=== PATIENT | male | born 1970 | race African-American/Black ===

== ENCOUNTER 2022-01-01 19:51 | Inpatient (IN) ==
[2022-01-01] MEDS ORDERED: PANTOprazole 40 MG in SYRINGE 0 ML IV ONE (20:06)
[2022-01-01] MEDS ORDERED: FAMOTIDINE 20MG IV PUSH 20 MG/5 ML SYR IV STA (20:06)
--- NOTE | 2022-01-01 20:16 | Emergency Department Note ---
Impression & Plan Anemia, FLANNERY (dyspnea on exertion), Acute GI bleeding ED Provider Note NAME: REJI WALKER AGE: 51 SEX: M : 1970 ARRIVES VIA: Walk-In INFORMANT: Patient, ED PROVIDER(S): Merlin Benton DO CHIEF COMPLAINT: Shortness of breath HPI: The patient is a 51-year-old male who presented to the emergency department for an evaluation of dyspnea on exertion. The patient states that he was seen at the [facility] and had laboratory studies obtained. He is unsure what laboratory studies were abnormal but he was sent to the emergency department for further evaluation. He states he has had no chest pain. He denies having any abdominal pain. He denies having any black or bloody bowel movements. He denies having any swelling in his legs. He states he has been noticing shortness of breath especially with exertion. He states he did not have a rectal exam prior to being sent to the emergency department. The patient states he has had no fever or cough. He states he does have a history of peptic ulcer disease in the past. He states he has been compliant with his usual medication regimen. ROS: See above HPI for pertinent positives & negatives. A total of 10 systems reviewed and were otherwise negative. PAST MEDICAL HISTORY: See Below PAST SURGICAL HISTORY: See Below FAMILY HISTORY: See Below SOCIAL HISTORY: See Below HOME MEDICATIONS: See Below ALLERGIES: See Below VITALS: See Below PHYSICAL EXAMINATION: GENERAL: Patient is awake alert in no acute distress patient is resting com fortably and showing no signs of anxiety EYES: The conjunctivae are clear. The pupils are round and reactive. EARS, NOSE, MOUTH AND THROAT: The nose is without any evidence of any deformity. Mucous membranes are moist. Tongue is midline. NECK: The neck is nontender and supple. RESPIRATORY: Normal respiratory effort is noted there is no evidence of wheezing rhonchi or rales CARDIOVASCULAR: Regular rate and rhythm noted there no murmurs rubs or gallops normal S1 normal S2. GASTROINTESTINAL: The abdomen is mildly distended but soft. There is no tenderness guarding rigidity. Rectal exam revealed brown stool which was heme positive. MUSCULOSKELETAL/EXTREMITIES: There is no evidence of gross deformity full range of motion is noted in the hips and shoulders. SKIN: There is no obvious evidence of any rash. There are no petechiae, pallor or cyanosis noted. NEUROLOGIC: Patient is awake alert and oriented x3. MEDICAL DECISION MAKING: The patient is a 51-year-old male who presented to emergency department for an evaluation of shortness of breath. The patient was experiencing shortness of breath with exertion. He went to the [facility] and had laboratory studies drawn. He was sent to the emergency department this evening because of abnormal labs. The patient himself is not aware of what laboratory studies were abnormal. He denies having any nausea or vomiting. He did have heme positive stool which was brown. The patient has a history of GERD. At this time the patient has no definite source for the anemia although it could be related to the heme positive stool. I discussed the patient's laboratory and radiographic studies with him. He was ordered a blood transfusion. I consented the patient for blood in the emergency department. Triage Nursing notes reviewed. Prior medical records reviewed Vital Signs: reviewed and remarkable for no significant abnormalities Differential diagnosis: Infection, dehydration, metabolic abnormality, hypo/hyperglycemia, electrolyte disturbance, anemia, hypoxia, cardiac sources, intracerebral event, toxicologic, neurologic, as well as other pathologies. ER treatment provided: See below Diagnostics interpreted by me: ECG: EKG was obtained in the emergency department. My interpretation is normal sinus rhythm at 75 bpm. There is no ectopy. There is no acute ST segment abnormalities noted. No previous tracing was available. Cardiac Monitoring: An order was placed for continuous cardiac monitoring. The monitor shows a rate of 87 bpm with sinus rhythm. Laboratory studies: As stated above and show below. Imaging studies: See below Consultation(s): Discussed this case with Dr. Duke. ED COURSE: Procedures: none PDMP:reviewed and no issues Critical Care: I have personally spent greater than 40 minutes of critical care time in the direct management of this patient. This includes bedside care, interpretation of diagnostic studies, and testing, discussion with consultants, patient, and family members, and other required patient management activities. This 40 minutes is in excess of all separately billable procedures. Past Med/Surg History Medical History BPH (benign prostatic hyperplasia) GERD (gastroesophageal reflux disease) Hyperlipidemia Hypertension Insulin dependent diabetes mellitus Sleep apnea Spinal stenosis Social History Smoking Status: Current every day smoker Tobacco Type: E-cigarettes / Vaping Hx Substance Use: Yes Prescribed Medications: Marijuana Non-Prescribed Medications: Crack / Cocaine Preferred Language: Angolan Feels Safe at Home: Yes Allergies Allergies Allergy/AdvReac Type Severity Reaction Status Date / Time lisinopril Allergy Unknown ON MED LIST Verified 01/01/22 20:36 NSAIDS (Non-Steroidal Allergy Unknown ON MED LIST Verified 01/01/22 20:36 Anti-Inflamma Results & Data (ED) Vital Signs Vital Signs - 24 hr 01/01/22 19:52 Temperature 36.5 C Temperature Source Temporal Artery Scan Pulse Rate 87 Respiratory Rate 20 Respiratory Effort / Characteristics Non-Labored Spontaneous Respiratory Depth Normal Blood Pressure 130/73 Blood Pressure Mean 92 Pulse Oximetry 98 Oxygen Delivery Method Room Air Sepsis New/Unexplained Change in Mental Status N/A Sepsis Action Taken by Nursing No Action Required Home Medications Current Medication List: was personally reviewed by me Laboratory Data Attestation: I reviewed the patient's lab results. Result diagrams: 01/01/22 20:10 01/01/22 20:10 Lab Results 01/01/22 01/01/22 01/01/22 Range/Units 20:10 20:10 20:10 WBC 10.29 (4.8-10.8) K/uL RBC 4.41 L (4.7-6.1) M/uL Hgb 6.3 L* (14.0-18.0) g/dL Hct 24.6 L (42-52) % MCV 55.8 L (80-100) fL MCH 14.3 L (25-34) pg MCHC 25.6 L (32-36) g/dL RDW Std Deviation 47.4 H (36.4-46.3) fL RDW Coeff of Nikki 23.3 H (11.5-14.5) % Plt Count 374 (130-400) K/uL MPV 8.0 (7.4-10.4) fL Immature Gran % (Auto) 0.5 % Neut % (Auto) 52.2 % Lymph % (Auto) 33.2 % Sanders % (Auto) 10.7 % Eos % (Auto) 2.4 % Baso % (Auto) 1.0 % Neut # (Auto) 5.37 (1.4-6.5) K/uL Lymph # (Auto) 3.42 H (1.2-3.4) K/uL Sanders # (Auto) 1.10 H (0.11-0.59) K/uL Eos # (Auto) 0.25 (0-0.5) K/uL Baso # (Auto) 0.10 (0-0.2) K/uL Immature Gran # (Auto) 0.05 H (0.00-0.02) K/uL Absolute Nucleated RBC 0.14 H (0-0) K/uL Nucleated RBC % (auto) 1.4 % Polychromasia 1+ Hypochromasia Present Microcytosis Present Tear Drop Cells 1+ Ovalocytes 1+ PT 11.0 (9.0-12.0) Seconds INR 1.0 (0.9-1.1) APTT 21.8 (21.0-31.0) Seconds PTT Ratio 0.8 Sodium (136-145) mmol/L Potassium (3.5-5.1) mmol/L Chloride (98-107) mmol/L Carbon Dioxide (21-32) mmol/L Anion Gap (3-11) BUN (6-23) mg/dl Creatinine (0.6-1.4) mg/dl Est Cr Clr Drug Dosing Est GFR ( Amer) ml/min Est GFR (Non-Af Amer) ml/min BUN/Creatinine Ratio (10-20) Glucose (70-99(Fasting)) mg/dl Calcium (8.5-10.1) mg/dl Total Bilirubin (0.2-1.0) mg/dl AST (13-39) U/L ALT (7-52) U/L Alkaline Phosphatase (34-104) U/L Total Protein (6.0-8.3) gm/dl Albumin (3.4-5.0) gm/dl Globulin (2.5-4.0) gm/dl Albumin/Globulin Ratio (0.9-2) Lipase (11-82) U/L Crossmatch See Detail 01/01/22 Range/Units 20:10 WBC (4.8-10.8) K/uL RBC (4.7-6.1) M/uL Hgb (14.0-18.0) g/dL Hct (42-52) % MCV (80-100) fL MCH (25-34) pg MCHC (32-36) g/dL RDW Std Deviation (36.4-46.3) fL RDW Coeff of Nikki (11.5-14.5) % Plt Count (130-400) K/uL MPV (7.4-10.4) fL Immature Gran % (Auto) % Neut % (Auto) % Lymph % (Auto) % Sanders % (Auto) % Eos % (Auto) % Baso % (Auto) % Neut # (Auto) (1.4-6.5) K/uL Lymph # (Auto) (1.2-3.4) K/uL Sanders # (Auto) (0.11-0.59) K/uL Eos # (Auto) (0-0.5) K/uL Baso # (Auto) (0-0.2) K/uL Immature Gran # (Auto) (0.00-0.02) K/uL Absolute Nucleated RBC (0-0) K/uL Nucleated RBC % (auto) % Polychromasia Hypochromasia Microcytosis Tear Drop Cells Ovalocytes PT (9.0-12.0) Seconds INR (0.9-1.1) APTT (21.0-31.0) Seconds PTT Ratio Sodium 140 (136-145) mmol/L Potassium 3.8 (3.5-5.1) mmol/L Chloride 109 H (98-107) mmol/L Carbon Dioxide 24 (21-32) mmol/L Anion Gap 7 (3-11) BUN 13 (6-23) mg/dl Creatinine 1.00 (0.6-1.4) mg/dl Est Cr Clr Drug Dosing Not Reportable Est GFR ( Amer) 99.8 ml/min Est GFR (Non-Af Amer) 86.2 ml/min BUN/Creatinine Ratio 13.0 (10-20) Glucose 63 L (70-99(Fasting)) mg/dl Calcium 8.4 L (8.5-10.1) mg/dl Total Bilirubin 0.3 (0.2-1.0) mg/dl AST 19 (13-39) U/L ALT 18 (7-52) U/L Alkaline Phosphatase 62 (34-104) U/L Total Protein 6.6 (6.0-8.3) gm/dl Albumin 3.8 (3.4-5.0) gm/dl Globulin 2.8 (2.5-4.0) gm/dl Albumin/Globulin Ratio 1.4 (0.9-2) Lipase 23 (11-82) U/L Crossmatch Discharge Plan Visit Data Chief Complaint: Abnormal Labs/Diagnostic Testing Stated Complaint: ABNORMAL LABS ED Provider: Merlin Benton Discharge Problem: Anemia, FLANNERY (dyspnea on exertion), Acute GI bleeding Patient Disposition: Being Evaluated by Hospitalist Forms Stand Alone Forms: [facility] Referrals Referrals: Michael LOPEZ [Primary Care Provider] -
[2022-01-01 20:22] LABS: Hematocrit (blood only) 24.6 % (42-52); Hemoglobin 6.3 g/dL (14.0-18.0); Mean Corpuscular Hemoglobin 14.3 pg (25-34); Mean Corpuscular Hgb Conc 25.6 g/dL (32-36); Mean Corpuscular Volume 55.8 fL (80-100); Nucleated RBC # (auto) 0.14 K/uL (0-0); Nucleated RBC % (auto) 1.4 %; Platelet Count 374 K/uL (130-400); RDW Coefficient of Variation 23.3 % (11.5-14.5); RDW Standard Deviation 47.4 fL (36.4-46.3); Red Blood Count 4.41 M/uL (4.7-6.1); White Blood Count 10.29 K/uL (4.8-10.8)
[2022-01-01] MEDS ORDERED: SODIUM CHLORIDE 0.9% 250 ML IV PRN (20:29)
[2022-01-01 20:34] LABS: Partial Thromboplastin Ratio 0.8; Partial Thromboplastin Time 21.8 Seconds (21.0-31.0)
[2022-01-01 20:37] LABS: Eosinophils # (auto) 0.25 K/uL (0-0.5); Eosinophils % (auto) 2.4 %; Hypochromasia Present; Immature Granulocytes # (auto) 0.05 K/uL (0.00-0.02); Immature Granulocytes % (auto) 0.5 %; Lymphocytes # (auto) 3.42 K/uL (1.2-3.4); Lymphocytes % (auto) 33.2 %; Microcytosis Present; Monocytes % (auto) 10.7 %; Neutrophils # (auto) 5.37 K/uL (1.4-6.5); Neutrophils % (auto) 52.2 %; Ovalocytes 1+; Polychromasia 1+; Tear Drop Cells 1+
[2022-01-01 20:38] LABS: Alanine Aminotransferase 18 U/L (7-52); Albumin Globulin Ratio 1.4 (0.9-2); Albumin Level 3.8 gm/dl (3.4-5.0); Alkaline Phosphatase 62 U/L (34-104); Anion Gap 7 (3-11); Aspartate Aminotransferase 19 U/L (13-39); Bilirubin,Total 0.3 mg/dl (0.2-1.0); Blood Urea Nitrogen 13 mg/dl (6-23); Calcium 8.4 mg/dl (8.5-10.1); Carbon Dioxide 24 mmol/L (21-32); Chloride 109 mmol/L (98-107); Est GFR (African American) 99.8 ml/min; Est GFR (Non-African American) 86.2 ml/min; Globulin 2.8 gm/dl (2.5-4.0); Glucose 63 mg/dl (70-99(Fasting)); Lipase 23 U/L (11-82); Potassium 3.8 mmol/L (3.5-5.1); Sodium 140 mmol/L (136-145); Total Protein 6.6 gm/dl (6.0-8.3)
[2022-01-01 20:40] LABS: Troponin I < 0.03 ng/ml (0-0.04)
[2022-01-01] MEDS ORDERED: CALCIUM GLUCONATE 1,000 MG/60 ML BAG IV STA (20:43)
[2022-01-01] MEDS: DEXTROSE 50% 50 ML SYRINGE IV ONE ×2 (21:10→21:19)
--- NOTE | 2022-01-01 21:22 | History & Physical Report ---
Date of Service January 01, 2022 Assessment & Plan (1) Anemia: Plan: New onset Occult GI bleed hx PUD as per records Patient asymptomatic.. HTN, stable COPD, pulmonary symptoms at baseline DM 2 insulin requiring, patient currently hyperglycemic ongoing nicotine abuse Medical telemetry Transfuse PRBC to maintain hemoglobin greater than 7 Hold home aspirin Anemia work-up Continue home PPI GI consult Re: New onset anemia, occult GI bleed Hold basal insulin for now until recheck done given hypoglycemia, ISS BG goal 1 10-1 40, carb count coverage, check hemoglobin A1c Nicotine patch as needed DVT prophylaxis. SCDs Re: GI bleed Full code Text document was generated using [employer] voice recognition software. It may contain grammatical or spelling errors. Kindly contact undersigned for clarification of any documentation item in question. History of Present Illness Chief Complaint: Abnormal blood work Primary Care Provider: JESSICA Rodriguez History obtained from patient and records. Medical history significant for HTN, COPD, STONEY on CPAP, DM 2 insulin requiring, PUD, mood disorder, ongoing nicotine abuse. Patient is an inmate at [facility] who went for routine blood work at the [facility] today. Patient hemoglobin noted to be low. Patient does not recall any problems with last blood work 6 months ago. Patient denies chest pain, weakness. Usual shortness of breath, cough symptoms which patient attributes to his COPD. Denies abdominal pain, black/bloody stools. Compliant with home antacids. Patient takes baby aspirin for heart protection. No prior history of CAD/CVA as per patient. Involuntary weight loss of about 15 pounds in the last 3 months as per patient despite good appetite. Last colonoscopy was about 5 years ago, unrecalled findings. Patient sent to the ER for evaluation. Brown stool faintly hemoccult positive as per ER provider. IV PPI and Famotidine administered at the ER. Medical History as above Surgical History : Achilles tendon surgery, neck surgery Family History : DM, lung cancer Personal/Social history : E-cigarette use, occasional EtOH intake, businessman prior to incarceration Allergies Allergy/AdvReac Type Severity Reaction Status Date / Time lisinopril Allergy Unknown ON MED LIST Verified 01/01/22 20:36 NSAIDS (Non-Steroidal Allergy Unknown ON MED LIST Verified 01/01/22 20:36 Anti-Inflamma Home Medications Medication Instructions Recorded Confirmed Type insulin glargine 100 unit/mL 40 unit SUBCUT BID 01/01/22 01/01/22 History subcutaneous solution insulin regular human 100 unit/mL 1 sliding scale dose SUBCUT BID 01/01/22 01/01/22 History injection solution (Novolin R Regular U-100 Insulin) insulin regular human 100 unit/mL 20 unit SUBCUT BID 01/01/22 01/01/22 History injection solution (Novolin R Regular U-100 Insulin) mirtazapine 45 mg tablet 45 mg PO HS 01/01/22 01/01/22 History oxybutynin chloride 5 mg tablet 5 mg PO TID 01/01/22 01/01/22 History prazosin 2 mg capsule 2 mg PO HS 01/01/22 01/01/22 History Past Med/Surg History Medical History BPH (benign prostatic hyperplasia) GERD (gastroesophageal reflux disease) Hyperlipidemia Hypertension Insulin dependent diabetes mellitus Sleep apnea Spinal stenosis Social History Smoking Status: Current every day smoker Tobacco Type: E-cigarettes / Vaping Second Hand Exposure: No; Do You Dip or Chew Tobacco: No; Tobacco Cessation Education Requested by Patient: No Hx Alcohol Use: No Hx Substance Use: No Preferred Language: Spanish [place] Diver Net Required: No Beliefs That Will Affect Care: Oriental Orthodox Oriental Orthodox Beliefs: Moravian- No pork products Current Living Situation: Other Current Living Situation Comment: Inmate Other Information That Helps Us Care for You: No Feels Safe at Home: Yes Safety Concerns: Feels Safe At This Time Assistive Devices: CPAP and Glasses Review of Systems Review of Systems: As per HPI, all 10 systems reviewed, all other ROS negative Physical Exam Physical Exam: GENERAL: Comfortable, no respiratory distress SKIN: Pallor, warm HEENT: Alopecia, pale palpebral conjunctivae, no ptosis, dry buccal mucosa NECK : Supple, no tenderness CHEST : Decreased breath sounds, no tenderness HEART : RRR, no obvious murmurs ABDOMEN: Some distention, nontender EXTREMITIES : No LE swelling/tenderness, no other conspicuous deformities noted NEUROLOGIC : Coherent, no facial asymmetry, no other gross focality Results & Data Results & Data ([facility]) Vital Signs (Past 12 Hours) Vital Signs Temp Pulse Pulse Resp BP BP Pulse Ox 01/01/22 21:16 36.8 C 84 18 132/71 99 03/12/22 19:59 99 01/01/22 19:52 36.5 C 87 20 130/73 98 Laboratory Results Laboratory Results WBC 10.29 K/uL (4.8-10.8) 01/01/22 20:10 RBC 4.41 M/uL (4.7-6.1) L 01/01/22 20:10 Hgb 6.3 g/dL (14.0-18.0) L* 01/01/22 20:10 Hct 24.6 % (42-52) L 01/01/22 20:10 MCV 55.8 fL (80-100) L 01/01/22 20:10 MCH 14.3 pg (25-34) L 01/01/22 20:10 MCHC 25.6 g/dL (32-36) L 01/01/22 20:10 RDW Std Deviation 47.4 fL (36.4-46.3) H 01/01/22 20:10 RDW Coeff of Nikki 23.3 % (11.5-14.5) H 01/01/22 20:10 Plt Count 374 K/uL (130-400) 01/01/22 20:10 MPV 8.0 fL (7.4-10.4) 01/01/22 20:10 Immature Gran % (Auto) 0.5 % 01/01/22 20:10 Neut % (Auto) 52.2 % 01/01/22 20:10 Lymph % (Auto) 33.2 % 01/01/22 20:10 Dakota % (Auto) 10.7 % 01/01/22 20:10 Eos % (Auto) 2.4 % 01/01/22 20:10 Baso % (Auto) 1.0 % 01/01/22 20:10 Neut # (Auto) 5.37 K/uL (1.4-6.5) 01/01/22 20:10 Lymph # (Auto) 3.42 K/uL (1.2-3.4) H 01/01/22 20:10 Dakota # (Auto) 1.10 K/uL (0.11-0.59) H 01/01/22 20:10 Eos # (Auto) 0.25 K/uL (0-0.5) 01/01/22 20:10 Baso # (Auto) 0.10 K/uL (0-0.2) 01/01/22 20:10 Immature Gran # (Auto) 0.05 K/uL (0.00-0.02) H 01/01/22 20:10 Absolute Nucleated RBC 0.14 K/uL (0-0) H 01/01/22 20:10 Nucleated RBC % (auto) 1.4 % 01/01/22 20:10 Polychromasia 1+ 01/01/22 20:10 Hypochromasia Present 01/01/22 20:10 Microcytosis Present 01/01/22 20:10 Tear Drop Cells 1+ 01/01/22 20:10 Ovalocytes 1+ 01/01/22 20:10 PT 11.0 Seconds (9.0-12.0) 01/01/22 20:10 INR 1.0 (0.9-1.1) 01/01/22 20:10 APTT 21.8 Seconds (21.0-31.0) 01/01/22 20:10 PTT Ratio 0.8 01/01/22 20:10 Sodium 140 mmol/L (136-145) 01/01/22 20:10 Potassium 3.8 mmol/L (3.5-5.1) 01/01/22 20:10 Chloride 109 mmol/L (98-107) H 01/01/22 20:10 Carbon Dioxide 24 mmol/L (21-32) 01/01/22 20:10 Anion Gap 7 (3-11) 01/01/22 20:10 BUN 13 mg/dl (6-23) 01/01/22 20:10 Creatinine 1.00 mg/dl (0.6-1.4) 01/01/22 20:10 Est Cr Clr Drug Dosing Not Reportable 01/01/22 20:10 Est GFR ( Amer) 99.8 ml/min 01/01/22 20:10 Est GFR (Non-Af Amer) 86.2 ml/min 01/01/22 20:10 BUN/Creatinine Ratio 13.0 (10-20) 01/01/22 20:10 Glucose 63 mg/dl (70-99(Fasting)) L 01/01/22 20:10 Calcium 8.4 mg/dl (8.5-10.1) L 01/01/22 20:10 Magnesium 1.5 mg/dl (1.7-2.4) L 01/01/22 20:10 Total Bilirubin 0.3 mg/dl (0.2-1.0) 01/01/22 20:10 AST 19 U/L (13-39) 01/01/22 20:10 ALT 18 U/L (7-52) 01/01/22 20:10 Alkaline Phosphatase 62 U/L (34-104) 01/01/22 20:10 Troponin I < 0.03 ng/ml (0-0.04) 01/01/22 20:10 Total Protein 6.6 gm/dl (6.0-8.3) 01/01/22 20:10 Albumin 3.8 gm/dl (3.4-5.0) 01/01/22 20:10 Globulin 2.8 gm/dl (2.5-4.0) 01/01/22 20:10 Albumin/Globulin Ratio 1.4 (0.9-2) 01/01/22 20:10 Lipase 23 U/L (11-82) 01/01/22 20:10 Blood Type B Positive 01/01/22 20:10 Blood Type Recheck B Positive 01/01/22 20:36 Antibody Screen NEGATIVE 01/01/22 20:10 Crossmatch See Detail 01/01/22 20:10 Diagnostic Findings Chest x-ray as per my interpretation cardiomegaly, elevated right hemidiaphragm EKG as per my interpretation : Rate 75, NSR, normal axis, no ischemia (1) Anemia Anemia type: unspecified type Qualified Code(s): D64.9 - Anemia, unspecified
[2022-01-01] MEDS ORDERED: ACETAMINOPHEN 325 MG TAB PO PRN (22:55)
[2022-01-01] MEDS ORDERED: DEXTROSE 50% 50 ML SYRINGE IV PRN (22:55)
[2022-01-01] MEDS ORDERED: CARBOHYDRATES FOR HYPOGLYCEMIA PO PRN (22:55)
[2022-01-01] MEDS ORDERED: GLUCOSE 10 TABS/TUBE PO PRN (22:55)
[2022-01-01] MEDS ORDERED: GLUCAGON FOR INJ 1 MG VIAL SQ PRN (22:55)
[2022-01-01] MEDS ORDERED: PROMETHAZINE HCL 12.5 MG in SODIUM CHLORIDE 0.9% 50 ML IV PRN (22:55)
[2022-01-01] MEDS ORDERED: GLUCOSE 40% GEL 15 GM TUBE PO PRN (22:55)
[2022-01-01] MEDS: PRAZOSIN HCL 1 MG CAP PO SCH (23:29)
[2022-01-01] MEDS: MAGNESIUM SULFATE / D5W 1 GM/100 ML BAG IV SCH (23:36)
[2022-01-01] MEDS: INSULIN ASPART PER UNIT SC SCH (23:36)
[2022-01-02] MEDS: MAGNESIUM SULFATE / D5W 1 GM/100 ML BAG IV SCH (01:59)
[2022-01-02] MEDS ORDERED: INSULIN GLARGINE SOLOSTAR 100 UNITS/ML 3 ML PEN SC STA (03:24)
[2022-01-02 07:18] LABS: Hematocrit (blood only) 27.1 % (42-52); Hemoglobin 7.3 g/dL (14.0-18.0); Mean Corpuscular Hemoglobin 15.7 pg (25-34); Mean Corpuscular Hgb Conc 26.9 g/dL (32-36); Mean Corpuscular Volume 58.3 fL (80-100); Nucleated RBC # (auto) 0.11 K/uL (0-0); Nucleated RBC % (auto) 0.9 %; Platelet Count 346 K/uL (130-400); RDW Coefficient of Variation 26.4 % (11.5-14.5); RDW Standard Deviation 55.7 fL (36.4-46.3); Red Blood Count 4.65 M/uL (4.7-6.1); White Blood Count 11.98 K/uL (4.8-10.8)
[2022-01-02 07:52] LABS: Calcium 8.3 mg/dl (8.5-10.1); Creatinine Clr Calc Pharmacy 86.4 ml/min; Est GFR (African American) 99.8 ml/min; Est GFR (Non-African American) 86.2 ml/min; Magnesium 2.2 mg/dl (1.7-2.4)
[2022-01-02 07:58] LABS: Anisocytosis Present; Basophils # (auto) 0.08 K/uL (0-0.2); Basophils % (auto) 0.7 %; Eosinophils # (auto) 0.19 K/uL (0-0.5); Eosinophils % (auto) 1.6 %; Hypochromasia Present; Immature Granulocytes # (auto) 0.05 K/uL (0.00-0.02); Immature Granulocytes % (auto) 0.4 %; Lymphocytes # (auto) 3.11 K/uL (1.2-3.4); Microcytosis Present; Monocytes # (auto) 0.94 K/uL (0.11-0.59); Monocytes % (auto) 7.8 %; Neutrophils # (auto) 7.61 K/uL (1.4-6.5); Neutrophils % (auto) 63.5 %; Poikilocytosis Present; Reticulocyte % 1.4 % (0.5-2.0); Reticulocytes # 0.07 10^6/uL (0.02-0.10)
[2022-01-02 08:06] LABS: Folate (Folic Acid) 13.25 ng/ml (>5.38)
[2022-01-02 08:08] LABS: Ferritin 1.4 ng/ml (8-388)
[2022-01-02] MEDS: INSULIN ASPART PER UNIT SC SCH ×4 (08:47→20:27)
[2022-01-02] MEDS: OXYBUTYNIN CHLORIDE 5 MG TAB PO SCH ×3 (08:49→20:25)
[2022-01-02] MEDS ORDERED: PANTOprazole 40 MG TAB PO SCH (09:00)
[2022-01-02] MEDS ORDERED: INSULIN GLARGINE SOLOSTAR 100 UNITS/ML 3 ML PEN SC SCH (09:00)
--- NOTE | 2022-01-02 09:22 | XRay Report ---
XR chest 1V portable HISTORY: Atypical Chest Pain COMPARISON: None. FINDINGS: The cardiac silhouette is mildly enlarged. No focal lung consolidations to suggest pneumoni a. No evidence for pulmonary edema. Hazy appearance of the right medial lung base may represent promi nent mediastinal fat. Cervical spinal fusion hardware is noted. No pleural effusions. No pneumothorax . IMPRESSION: Mild cardiomegaly. Otherwise, no acute process within the chest. ACT 112: Negative or not required by law. Electronically signed by: Bud Hobbs M.D. 01/02/2022 9:20 AM
--- NOTE | 2022-01-02 09:25 | Electrocardiogram Report ---
Test Reason : Blood Pressure : / mmHG Vent. Rate : 075 BPM Atrial Rate : 075 BPM P-R Int : 140 ms QRS Dur : 090 ms QT Int : 374 ms P-R-T Axes : 047 034 069 degrees QTc Int : 417 ms Normal sinus rhythm Normal ECG No previous ECGs available Confirmed by Micah Leiva ([id number]) on 01/02/2022 9:25:10 AM Referred By: Michael LOPEZ Confirmed By:Micah Leiva
[2022-01-02] MEDS: CYANOCOBALAMIN (B-12) 100 MCG TABLET PO SCH (11:08)
--- NOTE | 2022-01-02 13:08 | Hospitalist Progress Note ---
Date of Service January 02, 2022 Assessment & Plan (1) Anemia: Plan: 51-year old man with PMH of PUD, HTN, COPD, STONEY on CPAP, DM 2 insulin requiring, mood disorder and ongoing nicotine abuse presented to our ED 01/01 due to abnormal blood work by primary care provider--low hemoglobin. Patient denies any abdominal pain or black tarry/bloody stools. Is being managed for the following: #. New onset anemia #. History of PUD #. GI bleed, likely upper GI Patient presented to our ED due to low hemoglobin on recommendation from primary care Patient denies any abdominal pain or black tarry/bloody stool Patient does report involuntary weight loss of about 15 pounds in the last 3 months as per patient despite good appetite Last colonoscopy was 5 years ago, does not recall findings. Ferritin level 1.4, iron level 24, low normal vitamin B12 level --> iron supplementation, and 30-day vitamin B12 supplementation. Admitting hemoglobin of 6.3/admitting FOBT positive, status post 1 unit transfusion. Hemoglobin 7.3, continue to monitor every 8 hours and as appropriate. Transfuse for hemoglobin less than 7. Discussed with GI, n.p.o. after midnight for likely EGD tomorrow. c/w PPI, HnH monitoring. Continue to hold home aspirin. #. Other chronic medical conditions: HTN, COPD, DM 2 insulin requiring, ongoing nicotine abuse Nicotine patch as needed, resume/continue with home medications as and when required. On insulin sliding scale. DVT prophylaxis. SCDs Re: GI bleed Full code Admission and Anticipated Discharge Date Admission Date: January 01, 2022 Subjective Patient seen and examined at bedside as a follow-up of new onset anemia and occult GI bleed on the background of PUD as per records. Patient lying in bed, on room air, NAD, no new acute events overnight, no new bowel movements while in hospital, patient not eating much. Patient denies any belly pain or acute changes with bladder habits. Patient denies any fever/headache/chills/chest pain/palpitation/sore throat/cough/other review of symptoms. Physical Exam 2 Physical Exam: GENERAL: Alert and oriented x3. NAD, on RA. HEENT: No pallor, no icterus. Pupils equal, round and reactive to light. Oral mucosa moist. NECK: No JVD, no neck masses. HEART: S1 and S2 heard. Regular rate and rhythm. No murmur, no gallop. RESPIRATORY SYSTEM: Normal AP diameter. No accessory muscle use. No wheezing, no crackles. ABDOMEN: Soft, bowel sounds present, nontender, no distention. CENTRAL NERVOUS SYSTEM: No facial droop. Speech is clear. Obeys simple commands. Moves extremities. EXTREMITIES: No edema, no erythema seen. Results & Data Results & Data ([facility]) Vital Signs (Past 12 Hours) Vital Signs Temp Pulse Pulse Resp BP BP BP 01/02/22 12:06 36.6 C 72 20 143/82 H 01/02/22 07:33 73 01/02/22 06:42 36.8 C 69 18 127/77 01/02/22 01:55 36.5 C 81 18 135/74 01/02/22 00:32 36.5 C 81 18 147/75 H 01/01/22 23:56 36.9 C 82 16 150/82 H Pulse Ox 01/02/22 12:06 99 01/02/22 07:33 01/02/22 06:42 96 01/02/22 01:55 97 01/02/22 00:32 97 01/01/22 23:56 99 (1) Anemia Anemia type: unspecified type Qualified Code(s): D64.9 - Anemia, unspecified
--- NOTE | 2022-01-02 13:13 | Gastrointestinal Consultation ---
Date of Consultation January 02, 2022 Supervising Physician Co-Signing Physician Notes Check iron studies Transfuse to at least a hgb of 7 Npo after midnitie for egd tomorrow pending endo schedules. History of Present Illness Reason for Consultation: Anemia Requesting Physician: Luther Downey Attending Physician: Gloria Stauffer MD History of Present Illness 51 yo male diabetic, htn, advised to come into [facility] from [facility] after routine labs showed his hgb to be low. Denies any complaints other than fatigue. No overt hematemesis, hematochezia. No knonw family history. Reported with pudz in the past per chart review- no records or prior egd reports to review. He is eating lunch when seeing him in no acute distress. 2 guards present in the room. Allergies Allergy/AdvReac Type Severity Reaction Status Date / Time lisinopril Allergy Unknown ON MED LIST Verified 01/01/22 20:36 NSAIDS (Non-Steroidal Allergy Unknown ON MED LIST Verified 01/01/22 20:36 Anti-Inflamma Home Medications Medication Instructions Recorded Confirmed Type insulin glargine 100 unit/mL 40 unit SUBCUT BID 01/01/22 01/01/22 History subcutaneous solution insulin regular human 100 unit/mL 1 sliding scale dose SUBCUT BID 01/01/22 01/01/22 History injection solution (Novolin R Regular U-100 Insulin) insulin regular human 100 unit/mL 20 unit SUBCUT BID 01/01/22 01/01/22 History injection solution (Novolin R Regular U-100 Insulin) mirtazapine 45 mg tablet 45 mg PO HS 01/01/22 01/01/22 History oxybutynin chloride 5 mg tablet 5 mg PO TID 01/01/22 01/01/22 History prazosin 2 mg capsule 2 mg PO HS 01/01/22 01/01/22 History Patient History Medical History BPH (benign prostatic hyperplasia) GERD (gastroesophageal reflux disease) Hyperlipidemia Hypertension Insulin dependent diabetes mellitus Sleep apnea Spinal stenosis Social History Smoking Status: Current every day smoker Tobacco Type: E-cigarettes / Vaping Second Hand Exposure: No; Do You Dip or Chew Tobacco: No; Tobacco Cessation Education Requested by Patient: No Hx Alcohol Use: No Hx Substance Use: No Preferred Language: Irish 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 Beliefs That Will Affect Care: Gnosticist Gnosticist Beliefs: Cheondoism- No pork products Current Living Situation: Other Current Living Situation Comment: Inmate Other Information That Helps Us Care for You: No Feels Safe at Home: Yes Safety Concerns: Feels Safe At This Time Assistive Devices: CPAP and Glasses Review of Systems Review of Systems: All systems reviewed & are unremarkable except as noted in HPI & below Physical Exam Physical Exam: Obese male in nad Constitutional: WD/WN, vitals as above Eyes: PERRL, conjunctivae normal, anicteric sclerae Gastrointestinal (Abdomen): normal bowel sounds, soft, nontender, no hepatosplenomegaly Soft nt nd Results & Data ([facility]) Vital Signs (Past 12 Hours) Vital Signs Temp Pulse Pulse Resp BP BP BP 01/02/22 12:06 36.6 C 72 20 143/82 H 01/02/22 07:33 73 01/02/22 06:42 36.8 C 69 18 127/77 01/02/22 01:55 36.5 C 81 18 135/74 01/02/22 00:32 36.5 C 81 18 147/75 H Pulse Ox 01/02/22 12:06 99 01/02/22 07:33 01/02/22 06:42 96 01/02/22 01:55 97 01/02/22 00:32 97 Laboratory Results Microcytic anemia Responsed to blood transfusion
[2022-01-02 16:29] LABS: Hematocrit (blood only) 27.8 % (42-52); Hemoglobin 7.5 g/dL (14.0-18.0)
[2022-01-02] MEDS: MIRTAZAPINE SOLTAB 15 MG PO SCH (20:22)
[2022-01-02] MEDS: PRAZOSIN HCL 1 MG CAP PO SCH (20:26)
[2022-01-02] MEDS: PANTOprazole 40 MG TAB PO SCH (20:27)
[2022-01-03 00:57] LABS: Hematocrit (blood only) 27.4 % (42-52); Hemoglobin 7.4 g/dL (14.0-18.0)
[2022-01-03 08:01] LABS: Hemoglobin 7.7 g/dL (14.0-18.0); Mean Corpuscular Hemoglobin 15.5 pg (25-34); Mean Corpuscular Hgb Conc 26.6 g/dL (32-36); Mean Corpuscular Volume 58.4 fL (80-100); Nucleated RBC # (auto) 0.07 K/uL (0-0); Nucleated RBC % (auto) 0.7 %; Platelet Count 340 K/uL (130-400); RDW Coefficient of Variation 26.5 % (11.5-14.5); Red Blood Count 4.97 M/uL (4.7-6.1); White Blood Count 10.45 K/uL (4.8-10.8)
[2022-01-03] MEDS: INSULIN ASPART PER UNIT SC SCH ×4 (08:17→21:30)
[2022-01-03] MEDS: INSULIN GLARGINE SOLOSTAR 100 UNITS/ML 3 ML PEN SC SCH (08:18)
--- NOTE | 2022-01-03 08:30 | Anesthesiology Consultation ---
Date of Service January 03, 2022 Assessment & Plan (1) Encounter for pre-operative examination: History Surgery Operation Date: 01/03/22 17:15 Proposed Procedures p Esophagogastroduodenoscopy Dr. Laly Ruffin MD Height/Weight Height: 5 ft 9 in Weight: 81.6 kg Allergies Allergy/AdvReac Type Severity Reaction Status Date / Time lisinopril Allergy Unknown ON MED LIST Verified 01/01/22 20:36 NSAIDS (Non-Steroidal Allergy Unknown ON MED LIST Verified 01/01/22 20:36 Anti-Inflamma Medications Home Medications Medication Instructions Recorded Confirmed Last Taken insulin glargine 100 unit/mL 40 unit SUBCUT BID 01/01/22 01/01/22 01/01/22 subcutaneous solution insulin regular human 100 unit/mL 1 sliding scale dose SUBCUT BID 01/01/22 01/01/22 01/01/22 15:30 injection solution (Novolin R 4 UNITS Regular U-100 Insulin) insulin regular human 100 unit/mL 20 unit SUBCUT BID 01/01/22 01/01/22 01/01/22 injection solution (Novolin R Regular U-100 Insulin) mirtazapine 45 mg tablet 45 mg PO HS 01/01/22 01/01/22 01/01/22 oxybutynin chloride 5 mg tablet 5 mg PO TID 01/01/22 01/01/22 Unknown prazosin 2 mg capsule 2 mg PO HS 01/01/22 01/01/22 01/01/22 Active Medications Generic Name Dose Route Start Last Admin Trade Name Freq PRN Reason Stop Dose Admin Cyanocobalamin 100 mcg 01/02/22 10:00 01/02/22 11:08 Cyanocobalamin (B-12) 100 Mcg Tablet PO 01/31/22 09:01 100 mcg QAM CLEMENT Administration Insulin Aspart 0 units 01/01/22 23:00 01/03/22 08:17 Insulin Aspart Per Unit SC 01/31/22 22:59 Not Given ACHS CLEMENT Insulin Glargine 5 units 01/03/22 09:00 01/03/22 08:18 Insulin Glargine Solostar 100 Units/Ml 3 Ml Pen SC 02/02/22 08:59 Not Given DAILY CLEMENT Mirtazapine 45 mg 01/02/22 21:00 01/02/22 20:22 Mirtazapine Soltab 15 Mg PO 02/01/22 20:59 45 mg HS CLEMENT Administration Oxybutynin Chloride 5 mg 01/02/22 09:00 01/02/22 20:25 Oxybutynin Chloride 5 Mg Tab PO 02/01/22 08:59 5 mg TID CLEMENT Administration Pantoprazole Sodium 40 mg 01/02/22 21:00 01/02/22 20:27 Pantoprazole 40 Mg Tab PO 02/01/22 20:59 40 mg BID CLEMENT Administration Prazosin HCl 2 mg 01/01/22 22:55 01/02/22 20:26 Prazosin Hcl 1 Mg Cap PO 01/31/22 22:54 2 mg HS CLEMENT Administration Past Medical History Medical History BPH (benign prostatic hyperplasia) GERD (gastroesophageal reflux disease) Hyperlipidemia Hypertension Insulin dependent diabetes mellitus Sleep apnea Spinal stenosis Social History Smoking Status: Current every day smoker tobacco type: e-cigarettes Do You Dip or Chew Tobacco: No Hx Alcohol Use: No Hx Substance Use: No Physical Exam Vital Signs Last Vital Signs Temp 37 C 01/03/22 07:30 Pulse 71 01/03/22 07:30 Resp 18 01/03/22 07:30 BP 118/76 01/03/22 07:30 Pulse Ox 96 01/03/22 07:30 Testing Laboratory Results 01/03/22 07:15 01/02/22 06:46 PT 11.0 Seconds (9.0-12.0) 01/01/22 20:10 INR 1.0 (0.9-1.1) 01/01/22 20:10 APTT 21.8 Seconds (21.0-31.0) 01/01/22 20:10 Blood Type B Positive 01/01/22 20:10 Antibody Screen NEGATIVE 01/01/22 20:10 01/03/22 01/02/22 08:04 20:56 POC Glucose 92 128 H Electrocardiogram Date: 01/01/22 Normal sinus rhythm Normal ECG No previous ECGs available Confirmed by Micah Leiva ([id number]) on 01/02/2022 9:25:10 AM Chest X-Ray Date: 01/01/22 IMPRESSION: Mild cardiomegaly. Otherwise, no acute process within the chest.
[2022-01-03] MEDS: CYANOCOBALAMIN (B-12) 100 MCG TABLET PO SCH (08:39)
[2022-01-03] MEDS: PANTOprazole 40 MG TAB PO SCH ×2 (08:39→21:28)
[2022-01-03] MEDS: FERROUS GLUCONATE 324 MG TAB PO SCH (08:39)
[2022-01-03] MEDS: OXYBUTYNIN CHLORIDE 5 MG TAB PO SCH ×3 (08:39→21:28)
[2022-01-03 09:08] LABS: Estimated Average Glucose 160 mg/dl; Hemoglobin A1C 7.2 % (4.5-5.6)
--- NOTE | 2022-01-03 10:02 | History & Physical Bridge Note ---
Date of Service January 03, 2022 History & Physical Bridge Note I have examined the patient, reviewed the History & Physical and in the interval since the performance of the History & Physical I have noted the following changes of clinical significance: no changes noted
--- NOTE | 2022-01-03 10:27 | GI REPORT ---
Patient Name: Ricardo Reyna Procedure Date: 01/03/2022 10:09 AM Date of : 1970 Admit Type: Inpatient Age: 51 Gender: Male Attending MD: Abena Ruffin M.d. Procedure: Upper GI endoscopy Providers: Abena Ruffin M.d. Referring MD: Michael Hdez Indications: Anemia Medicines: See anesthesia record Complications: No immediate complications. Estimated Blood Loss: Estimated blood loss: none. Procedure: Pre-Anesthesia Assessment: - Patient identification and proposed procedure were verified prior to the procedure by the physician, the nurse and the anesthesiologist. The procedure was verified in the pre-procedure area. - Prior to the procedure, a History and Physical was performed, and patient medications, allergies and sensitivities were reviewed. The patient's tolerance of previous anesthesia was reviewed. - The risks and benefits of the procedure and the sedation options and risks were discussed with the patient. All questions were answered and informed consent was obtained. After obtaining informed consent, the endoscope was passed under direct vision. Throughout the procedure, the patient's blood pressure, pulse, and oxygen saturations were monitored continuously. The Scope was introduced through the mouth, and advanced to the second part of duodenum. The upper GI endoscopy was accomplished without difficulty. The patient tolerated the procedure well. Findings: The examined esophagus appeared normal. The Z-line appeared regular. The examined stomach appeared normal. Biopsies were taken with a cold forceps for Helicobacter pylori testing. The pathology specimen was placed into Bottle B. Verification of patient identification for the specimen was done by the physician and nurse using the patient's name and medical record number. The duodenal bulb and second portion of the duodenum appeared normal. Biopsies for histology were taken with a cold forceps for evaluation of celiac disease. The pathology specimen was placed into Bottle A. Verification of patient identification for the specimen was done by the physician and nurse using the patient's name and medical record number. Impression: - Normal esophagus. - Z-line regular. - Normal stomach. Biopsied. - Normal duodenal bulb and second portion of the duodenum. Biopsied. Recommendation: - Await pathology results. Can Lopez M.d. 01/03/2022 10:26:52 AM This report has been signed electronically. Note Initiated On: 01/03/2022 10:09 AM Number of Addenda: 0 I attest to the content of the Intraoperative Record and orders documented therein, exceptions below {[id number]}
--- NOTE | 2022-01-03 10:28 | Communication Note ---
Date of Service: January 03, 2022 EGD normal - biopsies taken for celiac and h pylori. Ok to dc back to [facility]. Iron supplementation if indicated per iron studies. Outpt colon can be arranged in the future if needed.
[2022-01-03] MEDS ORDERED: LIDOCAINE 2% 2 ML VIAL/AMP(20MG/ML) INFIL ONE (10:30)
[2022-01-03] MEDS ORDERED: PROPOFOL IV EMULSION 10 MG/ML 20 ML VIAL IV ONE (10:30)
[2022-01-03] MEDS ORDERED: GLYCOPYRROLATE 0.2 MG/ML VIAL ONE (10:30)
--- NOTE | 2022-01-03 13:37 | Anesthesiology Progress Note ---
Date of Service January 03, 2022 Anesthesia Post Procedure Vital Signs Vital Signs: Temp Pulse Pulse Pulse Pulse Resp BP 01/03/22 10:56 75 18 125/87 01/03/22 10:41 82 18 131/90 01/03/22 10:26 85 15 112/72 01/03/22 09:41 36.6 C 69 16 127/75 01/03/22 07:30 37 C 71 18 01/03/22 06:57 70 01/03/22 03:49 36.7 C 69 18 136/73 01/03/22 00:54 79 01/02/22 23:21 36.8 C 86 18 135/74 01/02/22 19:04 36.8 C 66 18 137/80 01/02/22 15:11 63 01/02/22 15:03 36.8 C 68 20 135/88 BP Pulse Ox 01/03/22 10:56 98 01/03/22 10:41 99 01/03/22 10:26 95 01/03/22 09:41 96 01/03/22 07:30 118/76 96 01/03/22 06:57 01/03/22 03:49 95 01/03/22 00:54 01/02/22 23:21 97 01/02/22 19:04 98 01/02/22 15:11 01/02/22 15:03 99 Transfer of Care Handoff Completed per policy Notes Mental Status: alert / awake / arousable and participated in evaluation Patient Amnestic to Procedure: Yes Nausea / Vomiting: adequately controlled Pain: adequately controlled Airway Patency, RR, SpO2: stable & adequate BP & HR: stable & adequate Hydration State: stable & adequate Anesthetic Complications: no major complications apparent and Pt Satisfied with anesthetic care
--- NOTE | 2022-01-03 17:41 | Hospitalist Progress Note ---
Date of Service January 03, 2022 Assessment & Plan (1) Anemia: Plan: 51-year old man with PMH of PUD, HTN, COPD, STONEY on CPAP, DM 2 insulin requiring, mood disorder and ongoing nicotine abuse presented to our ED 01/01 due to abnormal blood work by primary care provider--low hemoglobin. Patient denies any abdominal pain or black tarry/bloody stools. Is being managed for the following: #. New onset anemia #. History of PUD #. GI bleed, likely upper GI Patient presented to our ED due to low hemoglobin on recommendation from primary care Patient denies any abdominal pain or black tarry/bloody stool Patient does report involuntary weight loss of about 15 pounds in the last 3 months as per patient despite good appetite Last colonoscopy was 5 years ago, does not recall findings. Ferritin level 1.4, iron level 24, low normal vitamin B12 level --> iron supplementation, and 30-day vitamin B12 supplementation. Admitting hemoglobin of 6.3/admitting FOBT positive, status post 1 unit transfusion. Hemoglobin 7.7 and stable, continue to monitor as appropriate. Transfuse for hemoglobin less than 7. 3/ EGD scope: wnl, biopsies taken for celiac and h.pylori GI Ok to DC from their POV. on clears, ADAT. #. Other chronic medical conditions: HTN, COPD, DM 2 insulin requiring, ongoing nicotine abuse Nicotine patch as needed, resume/continue with home medications as and when required. On insulin sliding scale. DVT prophylaxis. SCDs Re: GI bleed Full code Disposition: likely DC back to [facility] Admission and Anticipated Discharge Date Admission Date: January 01, 2022 Subjective Patient seen and examined at bedside as a follow-up of new onset anemia and occult GI bleed on the background of PUD as per records. Patient lying in bed, on room air, NAD, no new acute events overnight, no new bowel movements while in hospital, patient not eating much. Patient denies any belly pain or acute changes with bladder habits. Patient denies any fever/headache/chills/chest pain/palpitation/sore throat/cough/other review of symptoms. Physical Exam Physical Exam: GENERAL: Alert and oriented x3. NAD, on RA. HEENT: No pallor, no icterus. Pupils equal, round and reactive to light. Oral mucosa moist. NECK: No JVD, no neck masses. HEART: S1 and S2 heard. Regular rate and rhythm. No murmur, no gallop. RESPIRATORY SYSTEM: Normal AP diameter. No accessory muscle use. No wheezing, no crackles. ABDOMEN: Soft, bowel sounds present, nontender, no distention. CENTRAL NERVOUS SYSTEM: No facial droop. Speech is clear. Obeys simple commands. Moves extremities. EXTREMITIES: No edema, no erythema seen. Results & Data Results & Data ([facility]) Vital Signs (Past 12 Hours) Vital Signs Temp Pulse Pulse Pulse Pulse Resp BP 01/03/22 15:43 36.8 C 70 18 124/80 01/03/22 15:20 66 01/03/22 10:56 75 18 125/87 01/03/22 10:41 82 18 131/90 01/03/22 10:26 85 15 112/72 01/03/22 09:41 36.6 C 69 16 127/75 01/03/22 07:30 37 C 71 18 01/03/22 06:57 70 BP Pulse Ox 01/03/22 15:43 97 01/03/22 15:20 01/03/22 10:56 98 01/03/22 10:41 99 01/03/22 10:26 95 01/03/22 09:41 96 01/03/22 07:30 118/76 96 01/03/22 06:57 (1) Anemia Anemia type: unspecified type Qualified Code(s): D64.9 - Anemia, unspecified
[2022-01-03] MEDS ORDERED: ALBUT/IPRATROP 3MG/0.5MG NEB 3 ML VIAL NEB STA (19:24)
--- NOTE | 2022-01-03 19:57 | XRay Report ---
SINGLE VIEW CHEST CLINICAL HISTORY: Wheezing. FINDINGS: An AP, portable, upright chest radiograph is compared to study dated 01/01/2022. The cardiac silhouette is mildly enlarged. The pulmonary vasculature is noncongested. There is mild bibasilar at electasis. The lungs and pleural spaces are otherwise clear. No pneumothorax is seen. The bony thorax is grossly intact. Fusion hardware is noted in the lower cervical spine. IMPRESSION: No acute cardiopulmonary abnormality. ACT 112: Negative or not required by law. Electronically signed by: Prasad Lancaster M.D. 01/03/2022 7:55 PM
--- NOTE | 2022-01-03 20:18 | Communication Note ---
Date of Service: January 03, 2022 Patient with junky cough symptoms more than usual post procedure. Chest x-ray : No infiltrate AP ? Aspiration pneumonitis Recent endoscopy Patient not septic Unasyn followed by Augmentin course. Will relay to AM provider.
[2022-01-03] MEDS ORDERED: AMPICILLIN/SULBACTAM SOD 3,000 MG in 0.9 % SODIUM CHLORIDE 100 ML IV ONE (21:00)
[2022-01-03] MEDS: PRAZOSIN HCL 1 MG CAP PO SCH (21:27)
[2022-01-03] MEDS: MIRTAZAPINE SOLTAB 15 MG PO SCH (21:28)
[2022-01-03] MEDS ORDERED: ALBUT/IPRATROP 3MG/0.5MG NEB 3 ML VIAL NEB PRN (23:08)
[2022-01-04] MEDS ORDERED: AMOXICILLIN/CLAVULANATE 875 MG TAB PO SCH (08:00)
[2022-01-04 08:15] LABS: Hematocrit (blood only) 28.1 % (42-52); Hemoglobin 7.6 g/dL (14.0-18.0); Mean Corpuscular Hemoglobin 15.8 pg (25-34); Mean Corpuscular Volume 58.5 fL (80-100); Platelet Count 325 K/uL (130-400); RDW Coefficient of Variation 27.1 % (11.5-14.5); RDW Standard Deviation 56.4 fL (36.4-46.3); White Blood Count 11.23 K/uL (4.8-10.8)
[2022-01-04] MEDS: OXYBUTYNIN CHLORIDE 5 MG TAB PO SCH ×2 (08:47→13:21)
[2022-01-04] MEDS: INSULIN ASPART PER UNIT SC SCH ×2 (08:47→12:10)
[2022-01-04] MEDS: INSULIN GLARGINE SOLOSTAR 100 UNITS/ML 3 ML PEN SC SCH (08:47)
[2022-01-04] MEDS: CYANOCOBALAMIN (B-12) 100 MCG TABLET PO SCH (08:47)
[2022-01-04] MEDS: PANTOprazole 40 MG TAB PO SCH (08:48)
[2022-01-04] MEDS: FERROUS GLUCONATE 324 MG TAB PO SCH (08:48)
--- NOTE | 2022-01-04 10:56 | Discharge Summary ---
Date of Service January 04, 2022 Admission HPI Per Admitting Provider History obtained from patient and records. Medical history significant for HTN, COPD, STONEY on CPAP, DM 2 insulin requiring, PUD, mood disorder, ongoing nicotine abuse. Patient is an inmate at [facility] who went for routine blood work at the [facility] today. Patient hemoglobin noted to be low. Patient does not recall any problems with last blood work 6 months ago. Patient denies chest pain, weakness. Usual shortness of breath, cough symptoms which patient attributes to his COPD. Denies abdominal pain, black/bloody stools. Compliant with home antacids. Patient takes baby aspirin for heart protection. No prior history of CAD/CVA as per patient. Involuntary weight loss of about 15 pounds in the last 3 months as per patient despite good appetite. Last colonoscopy was about 5 years ago, unrecalled findings. Patient sent to the ER for evaluation. Brown stool faintly hemoccult positive as per ER provider. IV PPI and Famotidine administered at the ER. Medical History as above Surgical History : Achilles tendon surgery, neck surgery Family History : DM, lung cancer Personal/Social history : E-cigarette use, occasional EtOH intake, businessman prior to incarceration Admission Exam Per Admitting Provider GENERAL: Comfortable, no respiratory distress SKIN: Pallor, warm HEENT: Alopecia, pale palpebral conjunctivae, no ptosis, dry buccal mucosa NECK : Supple, no tenderness CHEST : Decreased breath sounds, no tenderness HEART : RRR, no obvious murmurs ABDOMEN: Some distention, nontender EXTREMITIES : No LE swelling/tenderness, no other conspicuous deformities noted NEUROLOGIC : Coherent, no facial asymmetry, no other gross focality Principal Diagnosis New onset anemia History of PUD Likely aspiration pneumonitis Discharge Exam GENERAL: Alert and oriented x3. NAD, on RA. HEENT: No pallor, no icterus. Pupils equal, round and reactive to light. Oral mucosa moist. NECK: No JVD, no neck masses. HEART: S1 and S2 heard. Regular rate and rhythm. No murmur, no gallop. RESPIRATORY SYSTEM: Normal AP diameter. No accessory muscle use. No wheezing, no crackles. ABDOMEN: Soft, bowel sounds present, nontender, no distention. CENTRAL NERVOUS SYSTEM: No facial droop. Speech is clear. Obeys simple commands. Moves extremities. EXTREMITIES: No edema, no erythema seen. Discharge Data Allergies Allergy/AdvReac Type Severity Reaction Status Date / Time lisinopril Allergy Unknown ON MED LIST Verified 01/01/22 20:36 NSAIDS (Non-Steroidal Allergy Unknown ON MED LIST Verified 01/01/22 20:36 Anti-Inflamma Consultations 01/01/22 20:34 ED Decision to Admit Stat 01/01/22 22:55 Consult Gastroenterology Routine Procedures Performed Operation Date: 01/03/22 17:15 Actual Procedures p EGD Biopsy Cytology - Abena Ruffin MD Hospital Course (1) Anemia: 51-year old man with PMH of PUD, HTN, COPD, STONEY on CPAP, DM 2 insulin requiring, mood disorder and ongoing nicotine abuse presented to our ED 01/01 due to abnormal blood work by primary care provider--low hemoglobin. Patient denies any abdominal pain or black tarry/bloody stools. Is being managed for the following: #. New onset anemia #. History of PUD #. GI bleed, likely upper GI #. Concern of aspiration pneumonitis after EGD scope: overnight had "junky" cough and was started on Augmentin, will continue for 5 days. Patient presented to our ED due to low hemoglobin on recommendation from primary care Patient denies any abdominal pain or black tarry/bloody stool Patient does report involuntary weight loss of about 15 pounds in the last 3 months as per patient despite good appetite Last colonoscopy was 5 years ago, does not recall findings. Ferritin level 1.4, iron level 24, low normal vitamin B12 level --> iron supplementation, and 30-day vitamin B12 supplementation. Admitting hemoglobin of 6.3/admitting FOBT positive, status post 1 unit transfusion. Hemoglobin 7.6 and stable, continue to monitor as appropriate. 01/03 EGD scope: wnl, biopsies taken for celiac and h.pylori GI Ok to DC from their POV. Pt tolerating diet well. #. Other chronic medical conditions: HTN, COPD, DM 2 insulin requiring, ongoing nicotine abuse Nicotine patch as needed, resume/continue with home medications as and when required. Resume home meds upon DC. DVT prophylaxis. SCDs Re: GI bleed Full code Patient is being discharged to [facility] with following instruction at the point of discharge. The instructions were communicated to the [facility] prior to discharge. Follow-up with your primary care physician within a week time. Get your blood work CBC done in a week time. Because your iron levels were low and your vitamin B12 levels were low normal, you have been started on iron therapy, continue with the iron therapy for at least 3 to 6 months and have yourself evaluated by your primary care physician for further need of iron therapy. You will be started on vitamin B12 therapy for 1 month. You underwent EGD scope on 01/03, biopsies were taken for celiac and H. pylori, follow-up with your primary care physician on the final results of those. Since you had increased cough symptoms after EGD scope, you have been started on antibiotic for likely aspiration pneumonitis, you will be discharged on antibiotics for total of 5 days. Probiotics added for the same duration. Take medications as prescribed. Total Time Total Time Spent Total Time Spent (In Minutes): 35 Discharge Plan Discharge Items [facility] Reason For Visit: ANEMIA; GI BLEED Discharge Diagnosis: New onset anemia History of PUD Likely aspiration pneumonitis Activity: Resume your previous activity Non-emergency contact: Primary Care Provider Call non-emergency contact if: you have any medication questions, your symptoms worsen and your temperature is above 101 Follow-up/Referrals: Michael LOPEZ [Primary Care Provider] - Diet: Carb Consistent or DM2 Addtl Attending Provider Instructions: Follow-up with your primary care physician within a week time. Get your blood work CBC done in a week time. Because your iron levels were low and your vitamin B12 levels were low normal, you have been started on iron therapy, continue with the iron therapy for at least 3 to 6 months and have yourself evaluated by your primary care physician for further need of iron therapy. You will be started on vitamin B12 therapy for 1 month. You underwent EGD scope on 01/03, biopsies were taken for celiac and H. pylori, follow-up with your primary care physician on the final results of those. Since you had increased cough symptoms after EGD scope, you have been started on antibiotic for likely aspiration pneumonitis, you will be discharged on antibiotics for total of 5 days. Probiotics added for the same duration. Take medications as prescribed. Pending Studies at Discharge: No Stand-Alone Forms: [employer] Items Patient informed of condition?: Yes Discharge Level of Care: Other Communicable Disease: No Discharge Prognosis: Stable Lines: None Urinary Catheter: No Medications and DC Order Prescriptions: New amoxicillin-pot clavulanate 875-125 mg tablet 1 tab PO BID 5 Days Qty: 10 RF: 0 ferrous gluconate 324 mg (38 mg iron) Tablet 324 mg PO QAM Qty: 30 RF: 0 pantoprazole 40 mg Tablet,Delayed Release (Dr/Ec) 40 mg PO BID Qty: 60 RF: 0 cyanocobalamin (vitamin B-12) [Vitamin B-12] 100 mcg Tablet 100 mcg PO QAM 30 Days Qty: 30 RF: 0 Probiotic 3 billion cell capsule 3,000 mmu cells PO DAILY 7 Days Qty: 7 RF: 0 Continued insulin glargine 100 unit/mL Solution 40 unit SUBCUT BID RF: 0 Novolin R Regular U-100 Insuln 100 unit/mL Solution 1 sliding scale dose SUBCUT BID RF: 0 Novolin R Regular U-100 Insuln 100 unit/mL Solution 20 unit SUBCUT BID RF: 0 mirtazapine 45 mg Tablet 45 mg PO HS RF: 0 oxybutynin chloride 5 mg Tablet 5 mg PO TID RF: 0 prazosin 2 mg Capsule 2 mg PO HS RF: 0 Discharge Orders: Discharge Order (Routine); Ordered 01/04/22 Ordered By: Gloria Stauffer Admission Data Admit Date/Time: 01/01/22 21:28 Attending Provider: Gloria Stauffer Admit Provider: Bernardino Beard Primary Care Provider: Michael LOPEZ Other Providers: Bernardino Beard ; Ant Schmitz ; Melida Kramer ; Giselle Suarez ; Jennifer Lamas ; Edgard Maher ; Misti Riggs ; Anjana Moseley ; Eduardo Chavez ; Jyothi Alfonso ; Lori Helton ; Esme Huynh ; Abena Ruffin ; Mike Cadena
== END 2022-01-04 15:00 | DRG 377 ==
LOC: ED 19:51 → 2W 21:28 → SUATTDRO 21:28 → 2W 22:36